=== PATIENT | female | born 1995 | race Caucasian/White ===

== ENCOUNTER 2020-12-29 12:13 | Observation (INO) | payer BC, SELFPAY ==
--- NOTE | 2020-12-29 14:43 | OBADM ---
This patient, Shweta Townsend, admitted to the OB room Labor/Delivery/Recovery 107 for observation. Patient/family oriented to hospital policies and general routines including ID bracelet, bed and alarms, visiting hours, pain management, procedures, bathroom and other care routines, personal items, smoking policy, room service/diet, and visiting hours. Patient/Family are encouraged to report perceived risks to care and to ask questions if they do not understand what they are told or what they should do.
--- NOTE | 2020-12-31 13:11 | PM.OBTRLD ---
OB - Triage/Final Diagnosis Visit Information Comments/Additional reasons for admission: I have assessed the risk for this patient, Shweta Townsend, and determined that she would benefit from observation care. Final Diagnosis (1) False labor: Code(s): O47.9 - False labor, unspecified Status: Acute
== END 2020-12-29 14:42 | disposition home or self-care (01) ==
PROVIDERS: Admitting Provider Obstetrics & Gynecology; Visit Provider Obstetrics & Gynecology
DX: O47.1 False labor at or after 37 completed weeks of gestation (principal); Z3A.39 39 weeks gestation of pregnancy
CPT/HCPCS: G0378; G0379

== ENCOUNTER 2020-12-30 00:15 | Inpatient (IN) | payer BC, SELFPAY ==
[2020-12-30] VITALS (167 sets, daily range): BP systolic 93–160; BP diastolic 52–104; PULSE 66–154; RESP 16–18; TEMP 36–37.9; O2SAT 93–100; BMI 27.4
--- NOTE | 2020-12-30 00:53 | LDADM ---
This patient, Shweta Townsend, was admitted to Labor/Delivery/Recovery 107 on 12/30/20 at 00:15. Plans for labor, pain management and were discussed with patient. Patient/family oriented to hospital policies and general routines including ID bracelet, bed and alarms, visiting hours, pain management, procedures, bathroom and other care routines, personal items, smoking policy, room service/diet and guest tray routines, security routines, and visiting hours. Patient/Family are encouraged to report perceived risks to care and to ask questions if they do not understand what they are told or what they should do. See OBIX for further documentation.
[2020-12-30] MEDS: LACTATED RINGERS 1,000 ML 125 ML IV CONT ×4 (01:00→08:57)
[2020-12-30] MEDS: AMPICILLIN 2 GM/NS 100 ML 2 GM/100 ML BAG IVPB (01:00)
[2020-12-30 01:02] LABS: Basophils Absolute Auto 0.1 K/mm3 (0.0-0.1); Basophils Percent Auto 0.3 % (0.2-1.2); Eosinophils Percent Auto 0.2 % (0-4.4); Hematocrit 36.2 % (37.0-47.0); Hemoglobin 12.1 g/dL (12.0-15.0); Immature Granulocyte Absolute 0.19 K/mm3 (0.00-0.031); Lymphocytes Absolute Auto 1.27 K/mm3 (0.9-3.2); Lymphocytes Percent Auto 6.7 % (18.3-44.2); Mean Corpuscular HGB Conc 33.4 g/dl (32-36); Mean Corpuscular Hemoglobin 30.1 pg (26-34); Mean Platelet Volume 9.3 fl (7.4-10.4); Monocytes Absolute Auto 0.8 K/mm3 (0.1-0.6); Monocytes Percent Auto 4.1 % (2.6-8.5); Neutrophils Absolute Auto 16.5 K/mm3 (1.3-6.7); Neutrophils Percent Auto 87.7 % (45.5-73.1); Platelet Count Result 305 k/mm3 (150-375); Red Blood Count 4.02 M/mm3 (4.2-5.4); Red Cell Distribution Width 13.6 % (11.5-14.5); White Blood Count 18.9 K/mm3 (4.5-10.0)
--- NOTE | 2020-12-30 02:19 | WPDANESEPPF ---
Anes - Initial Pre Proc Eval Procedure: labor epidural Date/Time: 12/30/20 02:19 Surgeon: Roe Buckner MD Pre Op Diagnosis: labor pain Pre Op Diagnosis: Contractions Patient Data Age: 25 Gender: F Height: 1.73 m Weight: 82 kg Last Vital Signs Pulse 82 12/30/20 02:16 BP 122/67 12/30/20 02:16 Pulse Ox 97 12/30/20 02:14 Allergies Allergy/AdvReac Type Severity Reaction Status Date / Time No Known Allergies Allergy Verified 12/12/20 14:34 Home Medications Medication Instructions Recorded Confirmed Type PNV cmb#95-ferrous fumarate-FA 1 tablet PO DAILY 12/12/20 12/12/20 History [] Laboratory Tests 12/30/20 12/30/20 00:49 00:49 WBC 18.9 K/mm3 H K/mm3 (4.5-10.0) RBC 4.02 M/mm3 L M/mm3 (4.2-5.4) Hgb 12.1 g/dL g/dL (12.0-15.0) Hct 36.2 % L % (37.0-47.0) MCV 90.0 fl fl (80-100) MCH 30.1 pg pg (26-34) MCHC 33.4 g/dl g/dl (32-36) RDW 13.6 % % (11.5-14.5) Plt Count 305 k/mm3 k/mm3 (150-375) MPV 9.3 fl fl (7.4-10.4) Immature Gran % (Auto) 1.0 % H % (0-0.5) Neut % (Auto) 87.7 % H % (45.5-73.1) Lymph % (Auto) 6.7 % L % (18.3-44.2) [place] % (Auto) 4.1 % % (2.6-8.5) Eos % (Auto) 0.2 % % (0-4.4) Baso % (Auto) 0.3 % % (0.2-1.2) Lymph # (Auto) 1.27 K/mm3 K/mm3 (0.9-3.2) [place] # (Auto) 0.8 K/mm3 H K/mm3 (0.1-0.6) Eos # (Auto) 0.0 K/mm3 K/mm3 (0-0.3) Baso # (Auto) 0.1 K/mm3 K/mm3 (0.0-0.1) Abs Immat Gran (auto) 0.19 K/mm3 H K/mm3 (0.00-0.031) Absolute Neuts (auto) 16.5 K/mm3 H K/mm3 (1.3-6.7) Absolute Nucleated RBC 0.0 K/mm3 K/mm3 (0.0-0.012) Nucleated RBC % 0.0 % % (0.0-0.2) RPR Pending Patient hx anesthesia problems: none Family hx anesthesia problems: none PMFSH Family History Family History Mother Breast cancer Father Diabetes mellitus Social History Social History Smoking status: Never smoker Second hand tobacco smoke exposure: No Substance use: never Gender identity (if verbalized by the patient): Female Sexual Orientation (if Verbalized by the Patient): Straight or Heterosexual Spiritual care concerns: No Anes - Eval Final PreProcedure Day of Procedure 12/30/20 02:19 Patient weight: overweight Heart: regular rate and rhythm Lungs: clear to auscultation and normal air movement Airway: Mallampati scale class II Neurological: alert and oriented ASA classification: II Anesthetic plan: proceed Anesthesia type and monitoring: regional epidural and standard monitoring Informed Consent: The patient's anesthetic plan and its attendant risks and benefits were discussed with the patient/family/POA. Questions were solicited and answers provided to the satisfaction of the patient/family/POA.
[2020-12-30] MEDS: AMPICILLIN 1 GM/NS 50 ML 1 GM/50 ML BAG IVPB ×2 (05:01→08:57)
--- NOTE | 2020-12-30 07:07 | WPDHPUPDATE1 ---
History and Physical Update Update Date/Time: 12/30/20 07:07 25 yo at 39w2d who presented in labor. Pt reports regular contractions that begin yesterday. She endorses good movement. She denies vaginal bleeding or leakage of fluid. Her has been uncomplicated thus far. History and Physical has been reviewed, including an updated exam of the patient. There are NO changes in the patient's condition. Risks, benefits, and alternatives have been discussed and questions answered. Patient agrees to proceed with procedure. A/P: 25 yo at 39w2d in labor admit to L&D routine admission orders Rh+ GBS +, will need PCN FHT cat 1 continuous EFM expectanat management
--- NOTE | 2020-12-30 08:40 | WPDOBADMIT ---
Obstetrics - Admit Note Admission Note: record reviewed. Additions to the history and/or subsequent changes in the physical findings follow. 25 y/o G1 at 39 2/7 weeks here with contractions. GBS pos. otherwise uncomplicated. AVSS NST reactive TOCO: contractions every 2-3 min ABD soft, nontender, gravid, vertex EXT nontender Cervix 9/100/+1. Vertex. A: IUP at term with labor. GBS pos. P: Receiving ampicillin. Plan oxytocin as needed. Anticipate .
--- NOTE | 2020-12-30 08:52 | PM.OBPNLAB ---
Pain Control Date/time seen: 12/30/20 08:52 Comments: Comfortable with epidural Pelvic Exam Dilation (cm): 9 Effacement (%): 100 station: +1 Contractions Contraction frequency: 3 Contraction pattern: Regular Contraction intensity: Moderate Status status: Category l Assessment and Plan Comments: A: IUP at term with labor. P: Augment with oxytocin as needed. Anticipate .
[2020-12-30] MEDS: OXYTOCIN 30 UNITS/NS 500 ML 30 UNITS/500 ML BAG 6 UNITS IV CONT (08:55)
[2020-12-30 10:35] LABS: Rapid Plasma Reagin Non-Reactive (NonReactive)
--- NOTE | 2020-12-30 10:47 | PM.OBPRVD ---
OB - Delivery Note Procedure Delivery date: 12/30/20 Procedure: Intrapartal events: None Induction method: none Delivery monitor: external FHT and external uterine Route of delivery: Episiotomy description: Midline Laceration Description: None Delivery repair: vicryl (3-0) Specimen: Yes (cord blood) Quantitative Blood Loss (ml): 425 Anesthesia type: Epidural Disposition: PACU Complications: None Narrative: 25 y/o G1 at 39 2/7 weeks gestation who presented to the hospital with contractions. She received an epidural for pain control. Amniotomy was performed with return of clear fluid. Her labor progressed and her cervix dilated completely. She pushed with good effort. A midline episiotomy was made and the infant's head delivered to the perineum, followed by the body. The nose and mouth were bulb suctioned. After a delay, the cord was clamped and cut. The infant was handed off the field. Cord blood was collected. The placenta delivered spontaneously and was grossly normal in appearance. The usual 3 vessel cord was noted. The MLE was free of extension. It was reapproximated using 3 0 Vicryl in the usual layered fashion. Excellent hemostasis resulted as did excellent reapproximation of the normal anatomy. Needle and instrument counts were correct. The patient was taken to recovery room in stable condition. The infant went to the nursery in stable condition. I was present and scrubbed for the entire delivery. [place] Baby Date of : 12/30/20 Time of : 10:26 Weeks of gestation at delivery: 39 Infant gender: Male Weight (pounds): 8 Weight (ounces): 3 presentation: vertex position: Left Occiput Anterior Placenta delivery description: Spontaneous and Normal Configuration cord vessel description: 3 Vessels and Delayed Cord Clamping score one minute: 9 score five minutes: 9
--- NOTE | 2020-12-30 10:50 | PM.OBDSVD ---
DS: Admitting Diagnosis Admitting Diagnosis Admitting Diagnosis: Labor at term GBS colonization DS: Discharge Diagnosis Discharge Diagnosis (1) (normal spontaneous vaginal delivery): Code(s): O80 - Encounter for full-term uncomplicated delivery Status: Acute (2) GBS (group B Streptococcus carrier), +RV culture, currently : Code(s): O99.820 - Streptococcus B carrier state complicating Status: Acute OB - DS: Summary OB Procedures : None OB Procedures Intrapartum: Spontaneous Vag Delivery OB Procedures: : None DS: Data Data Completed and Pending Labs on day of discharge: Labs from last 24 hours 12/30/20 12/30/20 12/30/20 00:49 00:49 00:49 WBC 18.9 H RBC 4.02 L Hgb 12.1 Hct 36.2 L MCV 90.0 MCH 30.1 MCHC 33.4 RDW 13.6 Plt Count 305 MPV 9.3 Immature Gran % (Auto) 1.0 H Neut % (Auto) 87.7 H Lymph % (Auto) 6.7 L [place] % (Auto) 4.1 Eos % (Auto) 0.2 Baso % (Auto) 0.3 Lymph # (Auto) 1.27 [place] # (Auto) 0.8 H Eos # (Auto) 0.0 Baso # (Auto) 0.1 Abs Immat Gran (auto) 0.19 H Absolute Neuts (auto) 16.5 H Absolute Nucleated RBC 0.0 Nucleated RBC % 0.0 RPR Non-reactive Blood Type O Positive Antibody Screen Negative Discharge Plan Discharge Attending physician on discharge: Roe Buckner Discharging Clinician: Roe Buckner Patient Disposition: Home, Self-Care Activity: pelvic rest Diet: regular Discharge Instructions: Call or return if temperature above 100.4? F, increased abdominal pain, increased vaginal bleeding or any new problems. Stand Alone Forms: General Discharge Information Follow-up/Referrals: Roe Buckner MD [Physician] - 6 Weeks Discharge Medications: New ibuprofen 600 mg tablet 600 mg PO Q6H PRN (Reason: cramps) Qty: 30 RF: 0 ferrous sulfate 325 mg (65 mg iron) tablet 325 mg PO DAILY Qty: 30 RF: 0 No Action PNV cmb#95-ferrous fumarate-FA [] 28 mg iron- 800 mcg Tablet 1 tablet PO DAILY RF: 0 Date of admission: 12/30/20 00:15 Primary Care Provider: PHYSICIAN,DEHYDROGENATION OPERATOR HEAD Admitting Provider: Roe Buckner Attending physician on admission: Roe Buckner Condition: Stable
[2020-12-30] MEDS: OXYTOCIN 30 UNITS/NS 500 ML 30 UNITS/500 ML BAG 125 UNITS IV CONT (11:08)
[2020-12-30] MEDS: IBUPROFEN 600 MG TABLET PO ×2 (11:45→18:05)
[2020-12-30] MEDS: BENZOCAINE 20% AER SPR (*SP) 56 GM CAN 1 SPRAY TOPICAL (12:28)
[2020-12-30] MEDS: WITCH HAZEL 40 PADS 1 PAD TOPICAL (12:28)
--- NOTE | 2020-12-30 13:42 | PC.NURSE ---
Addendum entered by Deborah Lieberman RN 12/30/20 13:42: Pt. admitted to room 280 at 1249. Original Note: Patient transferred to post room #280 per wheelchair. Support person present. Oriented to unit, room, information board, rooming in, admission packet and security measures. Patient verbalizes understanding.
--- NOTE | 2020-12-30 14:45 | PC.NURSE ---
Mother called out for assist with feeding. Mother reports infant has difficulties with first feeding. Infant has a tight frenulum. Mother's right areola is firm and edematous not allowing nipple to draw out. Reviewed feeding cues, frequencies, duration of feedings, feeding elimination flow sheet, and signs of adequate intake. Demonstrated stimulation techniques to wake for feeding. Assisted with infant to breast. Reviewed positioning/alignment in cross cradle, holding breast in ?U? hold and guided asymmetrical latch on. Infant unable to latch correctly. made several attempts to latch to right breast without a deep latch. Switched to left breast, nipple is not as large and areola is not as firm. made several attempts to latch and is unable to draw nipple in deeply. Offered and explained the nipple shield. Nipple shield provided to mother due to ineffective latch. Instructions given on application and cleaning of shield. Discussed nipple shield precautions and possible complications. Patient able to return demonstration on proper application of shield. Discussed the need to initiate pumping if continues to nurse with the shield. Patient verbalizes understanding. With shield in place, was able to latch with a shallow latch and nursed eagerly, with steady draws for bursts followed with long pausing and releasing latch. Mother was able to independently return to latch. Mother has pinching/discomfort with feeding. Mother removed shield and continued to attempt latch without shield. Discussed feeding options of pumping to provided any EBM available or supplementation with formula. Parents will discuss.
[2020-12-30] MEDS: DOCUSATE SODIUM 100 MG CAPSULE PO (16:05)
--- NOTE | 2020-12-30 16:11 | PC.NURSE ---
1600 Mother continued to independently attempt to left breast. latched with a good latch nursing with rhythmic draws, mother stimulates infant to keep him nursing effectively.
[2020-12-31] VITALS: BP 120/70; PULSE 130; RESP 18; TEMP 36.7; O2SAT 100
[2020-12-31] MEDS: IBUPROFEN 600 MG TABLET PO ×4 (00:17→20:30)
[2020-12-31 05:42] VITALS: BP 116/62; PULSE 84; RESP 16; TEMP 36.9; O2SAT 98
[2020-12-31] MEDS: ACETAMINOPHEN 325 MG TABLET 650 MG PO ×3 (06:00→20:15)
--- NOTE | 2020-12-31 07:45 | WPDANLDPN2 ---
Anes-Prog Note L&D Date/Time: 12/31/20 07:45 Comfortable throughout: labor and delivery Neuraxial method: epidural Epidural/Spinal procedure site: clean & non-tender Neuro status: Neuro function grossly intact. Cardiovascular status: normal Respiratory status: normal Airway patency: baseline Mental status: baseline Post-Op hydration status: normal Vital Signs: Last Vital Signs Temp 36.9 C 12/31/20 05:42 Pulse 84 12/31/20 05:42 Resp 16 12/31/20 05:42 BP 116/62 12/31/20 05:42 Pulse Ox 98 12/31/20 05:42 Pain score (VAS): 0 I/O: Intake & Output 12/30/20 12/30/20 12/31/20 15:59 23:59 07:59 Intake Total 2550 Output Total 511 Balance 2038 Post-procedural complaints: none Patient feedback: Patient satisfied with anesthetic care.
[2020-12-31 08:00] VITALS: BP 125/99; PULSE 92; RESP 18; TEMP 36.8
--- NOTE | 2020-12-31 08:15 | PC.NURSE ---
Consult with pt., mother reports infant latched for several good feedings during the night. Mother reports tenderness with feedings/pumping. Requested mother call out next feeding, mother states she would like to work independently and will call if assist is needed.
[2020-12-31] MEDS: DOCUSATE SODIUM 100 MG CAPSULE PO ×2 (08:55→17:07)
[2020-12-31] MEDS: BENZOCAINE 20% AER SPR (*SP) 56 GM CAN 1 SPRAY TOPICAL (08:56)
[2020-12-31] MEDS: MULTIVIT/MIN/PREN/FOL AC/IRON TABLET 1 TAB PO (08:56)
[2020-12-31] MEDS: WITCH HAZEL 40 PADS 1 PAD TOPICAL (08:56)
--- NOTE | 2020-12-31 10:16 | PM.OBPNVD ---
OB - PN: Subj Subjective Date/time seen: 12/31/20 10:16 Narrative: Pain OK. Desires circumcision for son. OB - PN: Obj Data Labs CBC & Chem 7: 12/30/20 00:49 Labs: Laboratory Results - last 24 hr 12/30/20 00:49 RPR Non-reactive OB - PN A/P Plan Comments: A: PPD#1, doing well. P: Routine care. Reviewed circ in detail. Exam Psych: Other: AVSS ABD soft, nontender, fundus firm EXT nontender
[2020-12-31 12:00] VITALS: BP 125/99; PULSE 92; RESP 18; TEMP 36.8; O2SAT 98
--- NOTE | 2020-12-31 12:55 | PC.NURSE ---
Assisted with to breast after frenulectomy. Discussed will continue to need assist with deep latch and may need to continue with supplementation until is able to maintain latch and nurse more effectively. Assisted with to breast. Reviewed positioning/alignment in cross cradle, holding breast in U hold and guided asymmetrical latch on. was able to latch correctly within a few attempts. Infant nursed eagerly, with steady draws and occasional swallowing followed with long pausing. Mother independently stimulated to keep awake and nursing. Aprox 5 minutes of feeding observed, this is the most consistent effective suckling noted and the longest maintaining latch. Reviewed signs of a correct latch, effective nursing and suck swallow ratio. Infant was able to maintain latch without discomfort to mother. Suggested mother continue to supplement the next few feedings and discontinue if is able to maintain consistent suck swallow for 10-15 minutes.
[2020-12-31 18:29] LABS: Hematocrit 29.1 % (37.0-47.0); Hemoglobin 9.6 g/dL (12.0-15.0)
[2020-12-31 19:26] VITALS: BP 108/48; PULSE 84; RESP 16; TEMP 36.1; O2SAT 96
[2020-12-31] MEDS: POLYSACCHARIDE IRON COMPLEX 150 MG CAPSULE PO (20:30)
[2021-01-01] MEDS: ACETAMINOPHEN 325 MG TABLET 650 MG PO (05:30)
[2021-01-01 06:50] VITALS: BP 119/74; PULSE 89; RESP 18; TEMP 36.4
[2021-01-01] MEDS: DOCUSATE SODIUM 100 MG CAPSULE PO (06:50)
[2021-01-01] MEDS: POLYSACCHARIDE IRON COMPLEX 150 MG CAPSULE PO (06:51)
[2021-01-01] MEDS: MULTIVIT/MIN/PREN/FOL AC/IRON TABLET 1 TAB PO (06:51)
--- NOTE | 2021-01-01 07:30 | PC.NURSE ---
Observed mother is able to independently latch infant with appropriate positioning/alignment. She reports slight nipple tenderness at times, is feeding as required and waking to feed if needed. has had at least 8 effective feedings in the past 24 hours followed with supplementation and mother pumping. is currently meeting outcomes for weight, output, jaundice and feeding frequencies. Infant is more awake and able to maintain latch after frenulectomy. Mother states infant requires less attempts to latch and is more consistent with suckling and maintaining latch. Mother questions if she needs to continue to supplement after feedings. Reviewed signs of adequate intake of output and clear yellow urine, feeding at least 10-15 minutes of effective nursing each feeding every 2-3 hours. Advised if is not able to feed as required or less than required output parents should begin to supplement after feedings and mother pump. Mother states she feels confident to continue effective and supplementing if needed at home. Reviewed transition to breast milk, signs of adequate intake, and engorgement/relief. Instructed to call ICP if intake/output less than required. Reviewed regular medications mother is taking. Information provided per [place]. Reviewed community resources on the [facility] website and in the Mom/Baby guide. Information on outpatient services provided. Mother has no further questions at this time.
--- NOTE | 2021-01-01 08:57 | PM.OBPNVD ---
OB - PN: Subj Subjective Date/time seen: 01/01/21 08:57 Narrative: Pain OK. Would like to go home. OB - PN: Obj Data Labs CBC & Chem 7: 12/31/20 18:15 Labs: Laboratory Results - last 24 hr 12/31/20 18:15 Hgb 9.6 L Hct 29.1 L OB - PN A/P Plan Comments: A: PPD#2, doing well. P: Home to f/u 6 weeks. Exam Psych: Other: AVSS ABD soft, nontender, fundus firm EXT nontender
--- NOTE | 2021-01-01 09:00 | PC.NURSE ---
Patient viewed the discharge video Mother & Baby Care, The First Two Weeks . Patient was given the opportunity and encouraged to ask questions. Patient verbalized understanding of information shared and has been given the mother/baby guide for home reference.
--- NOTE | 2021-01-01 11:30 | PC.NURSE ---
Self care and infant care discharge instructions given including follow up visit date and time. No questions or concerns voiced. Very pleasant and cooperative.
[2021-01-02 11:24] VITALS: BP 133/71; PULSE 89; RESP 20; TEMP 36.8; O2SAT 100
== END 2021-01-01 12:14 | disposition home or self-care (01) | DRG 807 ==
LOC: ANHLDR 10:51 → ANHOB2 12:53
PROVIDERS: Admitting Provider Student in an Organized Health Care Education/Training Program; Visit Provider Obstetrics & Gynecology
DX: O99.824 Streptococcus B carrier state complicating childbirth (principal); Z37.0 Single live birth; Z3A.39 39 weeks gestation of pregnancy
CPT/HCPCS: 36415; 85014; 85018; 85025; 86592; 86850; 86900; 86901; A9270; J0290; J2590; J2795; J7120

== ENCOUNTER 2022-12-06 18:44 | Inpatient (IN) | payer BC, SELFPAY ==
[2022-12-06 21:05] VITALS: BMI 32.2
--- NOTE | 2022-12-06 21:06 | LDADM ---
This patient, Shweta Townsend, was admitted to Labor/Delivery/Recovery 108 on 12/06/22 at 18:44. Plans for labor, pain management and were discussed with patient. Patient/family oriented to hospital policies and general routines including ID bracelet, bed and alarms, visiting hours, pain management, procedures, bathroom and other care routines, personal items, smoking policy, room service/diet and guest tray routines, infant security routines, and visiting hours. Patient/Family are encouraged to report perceived risks to care and to ask questions if they do not understand what they are told or what they should do. See OBIX for further documentation.
[2022-12-06 22:01] LABS: Basophils Absolute Auto 0.1 K/mm3 (0.0-0.1); Basophils Percent Auto 0.4 % (0.2-1.2); Eosinophils Absolute Auto 0.1 K/mm3 (0-0.3); Eosinophils Percent Auto 1.1 % (0-4.4); Hemoglobin 10.7 g/dL (12.0-15.0); Immature Granulocyte Percent A 0.8 % (0-0.5); Lymphocytes Absolute Auto 2.33 K/mm3 (0.9-3.2); Lymphocytes Percent Auto 18.9 % (18.3-44.2); Mean Corpuscular HGB Conc 32.4 g/dl (32-36); Mean Corpuscular Hemoglobin 28.2 pg (26-34); Mean Corpuscular Volume 86.8 fl (80-100); Mean Platelet Volume 9.3 fl (7.4-10.4); Monocytes Absolute Auto 0.8 K/mm3 (0.1-0.6); Monocytes Percent Auto 6.3 % (2.6-8.5); Neutrophils Absolute Auto 8.9 K/mm3 (1.3-6.7); Neutrophils Percent Auto 72.5 % (45.5-73.1); Platelet Count Result 325 k/mm3 (150-375); Red Cell Distribution Width 14.5 % (11.5-14.5); White Blood Count 12.3 K/mm3 (4.5-10.0)
[2022-12-07] VITALS (114 sets, daily range): BP systolic 79–216; BP diastolic 46–202; PULSE 61–154; RESP 16; TEMP 36.8–37.3; O2SAT 96–100
--- NOTE | 2022-12-07 00:06 | WPDANESEPP ---
Anes - Eval Pre Procedure Procedure: Labor epidural Date/Time: 12/07/22 00:06 Preop Diagnosis: Abdominal pain with contractions Pre Op Diagnosis: IOL Patient Data Age: 27 Gender: F Height: 1.75 m Weight: 99.09 kg Last Vital Signs O2 Del Method Room Air 12/06/22 21:05 Allergies Allergy/AdvReac Type Severity Reaction Status Date / Time No Known Allergies Allergy Verified 12/12/20 14:34 Home Medications Medication Instructions Recorded Confirmed Type vit no.95-ferrous 1 tablet PO DAILY 12/12/20 12/12/20 History fumarate 28 mg-folic acid 800 mcg tablet () ibuprofen 600 mg tablet 600 mg PO Q6H PRN cramps #30 tabs 12/31/20 Rx benzocaine 20 %-menthol 0.5 % 1 spray topical PRN PRN Perineal 01/01/21 Rx topical aerosol (Dermoplast (with Discomfort menthol)) ferrous sulfate 325 mg (65 mg 325 mg PO DAILY #30 tabs 01/01/21 Rx iron) tablet prenat.vits,анна,qtk-acof-fuuoz 1 tab PO DAILY 01/01/21 Rx (KPN tablet) witch cassie 50 % topical pads 1 pad topical PRN PRN Perineal 01/01/21 Rx (Preparation H (Witch Cassie)) Discomfort Laboratory Tests 12/06/22 12/06/22 12/06/22 21:56 21:56 21:56 WBC 12.3 K/mm3 H K/mm3 (4.5-10.0) RBC 3.80 M/mm3 L M/mm3 (4.2-5.4) Hgb 10.7 g/dL L g/dL (12.0-15.0) Hct 33.0 % L % (37.0-47.0) MCV 86.8 fl fl (80-100) MCH 28.2 pg pg (26-34) MCHC 32.4 g/dl g/dl (32-36) RDW 14.5 % % (11.5-14.5) Plt Count 325 k/mm3 k/mm3 (150-375) MPV 9.3 fl fl (7.4-10.4) Immature Gran % (Auto) 0.8 % H % (0-0.5) Neut % (Auto) 72.5 % % (45.5-73.1) Lymph % (Auto) 18.9 % % (18.3-44.2) [place] % (Auto) 6.3 % % (2.6-8.5) Eos % (Auto) 1.1 % % (0-4.4) Baso % (Auto) 0.4 % % (0.2-1.2) Lymph # (Auto) 2.33 K/mm3 K/mm3 (0.9-3.2) [place] # (Auto) 0.8 K/mm3 H K/mm3 (0.1-0.6) Eos # (Auto) 0.1 K/mm3 K/mm3 (0-0.3) Baso # (Auto) 0.1 K/mm3 K/mm3 (0.0-0.1) Abs Immat Gran (auto) 0.10 K/mm3 H K/mm3 (0.00-0.031) Absolute Neuts (auto) 8.9 K/mm3 H K/mm3 (1.3-6.7) Absolute Nucleated RBC 0.0 K/mm3 K/mm3 (0.0-0.012) Nucleated RBC % 0.0 % % (0.0-0.2) RPR Pending Blood Type O Positive Antibody Screen Negative : gestational age HCG: positive Patient hx anesthesia problems: none Family hx anesthesia problems: none Results Review: All pre-operative results and documents have been reviewed as part of the pre-operative evaluation. [facility] Past Medical History Medical History Obesity and not yet delivered Family History Family History Mother Breast cancer Father Diabetes mellitus Social History Social History Smoking status: Never smoker Second hand tobacco smoke exposure: No Substance use: never Lack of Transportation: No Lack of Food: Never True Current Housing: I Have Housing Concerned About Future Housing: No Difficulty Paying Gas/Electric Bills: No Difficulty Paying for Meds: No Currently Unemployed: No Education: Bachelor's Degree Difficulty w/ Childcare or Family Care: No Gender identity (if verbalized by the patient): Female Sexual Orientation (if Verbalized by the Patient): Straight or Heterosexual Spiritual care concerns: No Exam Day of Procedure 12/07/22 00:06 Patient weight: obese
[2022-12-07] MEDS: LACTATED RINGERS 1,000 ML 999 ML IV CONT (00:18)
[2022-12-07] MEDS: LACTATED RINGERS 1,000 ML 125 ML IV CONT (00:45)
--- NOTE | 2022-12-07 02:14 | WPDOBADMIT ---
Obstetrics - Admit Note Admission Note: record reviewed. Additions to the history and/or subsequent changes in the physical findings follow. 27 y/o at 39 1/7 weeks here with contractions. Labor diagnosed. Now comfortable with epidural. GBS neg. AVSS NST reactive TOCO: contractions every 3-5 min ABD soft, nontender, gravid, vertex EXT nontender Cervix 7/80/-2. AROM with clear fluid. Vertex. A: IUP at term with labor. P: Anticipate .
[2022-12-07] MEDS: OXYTOCIN 30 UNITS/NS 500 ML 30 UNITS/500 ML BAG IV CONT (03:13)
--- NOTE | 2022-12-07 05:13 | P.PCNOB_ITS ---
OB - Delivery Note Procedure Delivery date: 12/07/22 Procedure: Induction method: None Delivery augmentation: Rupture of Membranes and Pitocin Delivery monitor: External FHT and External Uterine Route of delivery: Laceration Description: Periurethral and Vaginal Delivery repair: vicryl (3-0) Specimen: Yes (cord blood) Quantitative Blood Loss (ml): 220 Anesthesia type: Epidural Disposition: PACU Complications: None Narrative: 27 y/o at 39 1/7 weeks gestation who presented to the hospital with contractions. Labor was diagnosed. She received an epidural for pain control. Amniotomy was performed with return of clear fluid. Her labor was subsequently augmented with IV oxytocin. Her labor progressed and her cervix dilated co mpletely. She pushed with good effort and delivered the infant's head to the perineum, followed by the body. The nose and mouth were bulb suctioned. After a delay, the cord was clamped and cut. The infant was handed off the field. Cord blood was collected. The placenta delivered spontaneously and was grossly normal in appearance. The usual 3 vessel cord was noted. A left sided periurethral laceration was sustained. This was reapproximated using 3 0 Vicryl in interrupted figure of eight fashion. A distal vaginal laceration was similarly reapproximated. Excellent hemostasis resulted as did excellent reapproximation of the normal anatomy. A red rubber catheter was passed through the urethra to make sure there was no kinking. Needle and instrument counts were correct. The patient was taken to recovery room in stable condition. The went to the nursery in stable condition. I was present and scrubbed for the entire delivery. [place] Baby Date of : 12/07/22 Time of : 04:54 Weeks of gestation at delivery: 39 Infant gender: Male Weight (pounds): 8 Weight (ounces): 11 presentation: vertex position: Right Occiput Anterior Placenta delivery description: Spontaneous and Normal Configuration Cord Vessel Description: 3 Vessels and Delayed Cord Clamping score one minute: 8 score five minutes: 9
--- NOTE | 2022-12-07 05:17 | PM.OBDSVD ---
DS: Admitting Diagnosis Discharge Date 12/09/22 Admitting Diagnosis IUP at 39 1/7 weeks Labor DS: Discharge Diagnosis Discharge Diagnosis (1) (normal spontaneous vaginal delivery): Code(s): O80 - Encounter for full-term uncomplicated delivery Status: Acute OB - DS: Summary OB Procedures : None OB Procedures Intrapartum: Spontaneous Vag Delivery OB Procedures: : None Time Spent with Patient Time attestation: Total time spent providing and/or coordinating discharge services: DS: Data Data Completed and Pending Labs on day of discharge: Labs from last 24 hours 12/06/22 12/06/22 12/06/22 21:56 21:56 21:56 WBC 12.3 H RBC 3.80 L Hgb 10.7 L Hct 33.0 L MCV 86.8 MCH 28.2 MCHC 32.4 RDW 14.5 Plt Count 325 MPV 9.3 Immature Gran % (Auto) 0.8 H Neut % (Auto) 72.5 Lymph % (Auto) 18.9 [place] % (Auto) 6.3 Eos % (Auto) 1.1 Baso % (Auto) 0.4 Lymph # (Auto) 2.33 [place] # (Auto) 0.8 H Eos # (Auto) 0.1 Baso # (Auto) 0.1 Abs Immat Gran (auto) 0.10 H Absolute Neuts (auto) 8.9 H Absolute Nucleated RBC 0.0 Nucleated RBC % 0.0 RPR Pending Blood Type O Positive Antibody Screen Negative Discharge Plan Discharge Attending physician on discharge: Roe Buckner Consulting providers: Asim Fuentes; Yesenia Aceves Discharging Clinician: Roe Buckner Patient Disposition: Home, Self-Care Activity: pelvic rest Diet: regular Discharge Instructions: Education: Mom and Baby Guide Given to: Mother Follow-Up: Call your delivering provider's office for an appointment to be seen in: 6 Weeks Mom and baby should come to the [facility] for the follow-up appointment. Appointment Date/Time: December 10, 2022 at 8:00 am What to expect at your follow-up visit: Blood Pressure Check Physical Assessment Call [phone] if you are unable to keep your appointment time. BREAST CARE: * Wear a snug supportive bra. * For engorgement discomfort: Breast Feeding: * Apply warm moist washcloths * Express milk as needed to relieve engorgement * Wear loose clothing * For sore nipples: * Identify correct latch-on * Apply warm moist washcloths before and after nursing * Air dry nipples after nursing * May apply Lansinoh cream to nipples PERINEAL CARE: * Until bleeding stops, use your daniela bottle after urinating * Change your pad frequently throughout the day * You may take sitz baths several times a day (fill your bathtub with warm water and soak for 20 minutes.) Do NOT bathe in the water * No tub baths until seen by your physician - You may shower ACTIVITY: * Rest as much as possible. * Do not exercise or lift anything heavier than your baby (such as laundry or other children.) * Avoid stairs or driving as much as possible. * Do not put anything into the vagina. No douching, tampons, or sexual activity until seen by physician. NOTIFY PHYSICIAN IF YOU HAVE ANY QUESTIONS OR IF ANY OF THE FOLLOWING SYMPTOMS OCCUR: * If your episiotomy or incision becomes red, swollen, or more painful than what you have experienced in the hospital. * If your vaginal bleeding becomes foul smelling. * If your vaginal bleeding becomes more heavy than a period or if your bleeding changes from pink to bright red. However, you may pass an occasional walnut-sized clot once or twice for the first week . * If you experience a sharp, shooting pain in your calves. * If you discover a hard, reddened area on your breast or if you experience flu-like symptoms. DIET: * Eat regular, well-balanced meals. * Drink plenty of fluids daily. If , drink to thirst. Call or return if temperature above 100.4? F, increased abdominal pain, increased vaginal bleeding or any new problems. Stand Alone Forms: General Discharge Information Follow-up/Ref
[2022-12-07] MEDS: OXYTOCIN 30 UNITS/NS 500 ML 30 UNITS/500 ML BAG 125 UNITS IV CONT (05:41)
--- NOTE | 2022-12-07 08:30 | OBPPTRN ---
Patient transferred to post room #292 via wheelchair. Support person present. Oriented to unit, room, information board, rooming in, admission packet and security measures. Patient verbalizes understanding.
[2022-12-07 08:32] LABS: Rapid Plasma Reagin Non-Reactive (NonReactive)
[2022-12-07] MEDS: DOCUSATE SODIUM 100 MG CAPSULE PO ×2 (09:31→17:32)
[2022-12-07] MEDS: MULTIVIT/MIN/PREN/FOL AC/IRON TABLET 1 TAB PO (09:31)
--- NOTE | 2022-12-07 09:41 | PC.NURSE ---
0915- Introductions were made, then consulted with patient to assess needs related to . Mother led the conversation with her?plans to feed?her infant, history and the?experience so far well with no pain. Resources provided for inpatient and outpatient services with the feeding sheet, mom/baby guide and name written on the white board. Mother voiced understanding of information and will call if there is a request for assistance. Reported to the primary RN.
[2022-12-07] MEDS: IBUPROFEN 600 MG TABLET PO (13:18)
[2022-12-07] MEDS: ACETAMINOPHEN 325 MG TABLET 650 MG PO (17:32)
[2022-12-08 05:14] LABS: Hematocrit 27.5 % (37.0-47.0); Mean Corpuscular Volume 88.4 fl (80-100); Red Blood Count 3.11 M/mm3 (4.2-5.4); White Blood Count 11.7 K/mm3 (4.5-10.0)
[2022-12-08 05:15] LABS: Basophils Percent Auto 0.4 % (0.2-1.2); Eosinophils Percent Auto 1.7 % (0-4.4); Lymphocytes Percent Auto 23.3 % (18.3-44.2); Mean Corpuscular HGB Conc 32.7 g/dl (32-36); Mean Corpuscular Hemoglobin 28.9 pg (26-34); Mean Platelet Volume 9.3 fl (7.4-10.4); Monocytes Percent Auto 6.5 % (2.6-8.5); Neutrophils Percent Auto 67.3 % (45.5-73.1); Platelet Count Result 257 k/mm3 (150-375); Red Cell Distribution Width 14.6 % (11.5-14.5)
[2022-12-08 05:16] LABS: Basophils Absolute Auto 0.1 K/mm3 (0.0-0.1); Eosinophils Absolute Auto 0.2 K/mm3 (0-0.3); Lymphocytes Absolute Auto 2.72 K/mm3 (0.9-3.2); Monocytes Absolute Auto 0.8 K/mm3 (0.1-0.6); Neutrophils Absolute Auto 7.9 K/mm3 (1.3-6.7)
[2022-12-08] MEDS: ACETAMINOPHEN 325 MG TABLET 650 MG PO ×2 (07:44→15:23)
[2022-12-08] MEDS: DOCUSATE SODIUM 100 MG CAPSULE PO ×2 (07:45→15:23)
[2022-12-08] MEDS: POLYSACCHARIDE IRON COMPLEX 150 MG CAPSULE PO ×2 (07:45→15:22)
[2022-12-08] MEDS: MULTIVIT/MIN/PREN/FOL AC/IRON TABLET 1 TAB PO (07:45)
[2022-12-08 08:35] VITALS: BP 121/73; PULSE 80; RESP 18; TEMP 37.3; O2SAT 99
--- NOTE | 2022-12-08 09:08 | PM.OBPNVD ---
OB - PN: Subj Subjective Date/time seen: 12/08/22 09:08 Narrative: Pain OK. Would like circumcision for son. OB - PN: Obj Data Labs 12/08/22 03:50 Labs: Laboratory Results - last 24 hr 12/08/22 03:50 WBC 11.7 H RBC 3.11 L Hgb 9.0 L Hct 27.5 L MCV 88.4 MCH 28.9 MCHC 32.7 RDW 14.6 H Plt Count 257 MPV 9.3 Immature Gran % (Auto) Not Reportable Neut % (Auto) 67.3 Lymph % (Auto) 23.3 [place] % (Auto) 6.5 Eos % (Auto) 1.7 Baso % (Auto) 0.4 Lymph # (Auto) 2.72 [place] # (Auto) 0.8 H Eos # (Auto) 0.2 Baso # (Auto) 0.1 Abs Immat Gran (auto) 0.80 H Absolute Neuts (auto) 7.9 H Absolute Nucleated RBC 0.0 Nucleated RBC % 0.0 OB - PN A/P Plan day: 1 Comments: A: PPD#1, doing well. P: Reviewed circ. Routine care. Exam Psych: Other: AVSS ABD soft, nontender, fundus firm EXT nontender
--- NOTE | 2022-12-08 10:44 | PC.NURSE ---
[phone] Purposefully rounded to assess needs. Mother is demonstrating an independent latch to the right breast. is dangling and RN gently suggested bringing infants body in close to mothers body and father encouraged supporting mother's arm with a pillow. She denies any nipple discomfort and is responsively . is currently meeting outcomes for weight, output, jaundice and feeding frequencies of 8-12 times in 24 hours. Mother declines any additional assistance/education at this time. Mother is encouraged to call for assistance if her infant doesn?t latch or there is discomfort with latching. Parents voiced understanding of information shared and the mom reminded of the mom/baby guide for an additional resource. Reported to the primary RN.
--- NOTE | 2022-12-08 10:49 | WPDANLDPN2 ---
Anes-Prog Note L&D Date/Time: 12/08/22 10:49 Comfortable throughout: labor and delivery Neuraxial method: epidural Epidural/Spinal procedure site: clean & non-tender Neuro status: Neuro function grossly intact. Cardiovascular status: normal Respiratory status: normal Airway patency: baseline Mental status: baseline Post-Op hydration status: normal Vital Signs: Last Vital Signs Temp 37.3 C 12/08/22 08:35 Pulse 80 12/08/22 08:35 Resp 18 12/08/22 08:35 BP 121/73 12/08/22 08:35 Pulse Ox 99 12/08/22 08:35 O2 Del Method Room Air 12/07/22 12:30 Pain score (VAS): 1 I/O: Intake & Output 12/07/22 12/08/22 12/08/22 23:59 07:59 15:59 Intake Total 240 Balance 240 Post-procedural complaints: none Patient feedback: Patient satisfied with anesthetic care.
[2022-12-08] MEDS: IBUPROFEN 600 MG TABLET PO (11:08)
[2022-12-08 19:39] VITALS: BP 142/85; PULSE 80; RESP 16; TEMP 36.6; O2SAT 99
--- NOTE | 2022-12-09 07:21 | PM.OBPNVD ---
OB - PN: Subj Subjective Date/time seen: 12/09/22 07:21 Patient comments: no complaints and pain well controlled baby status: doing well OB - PN: Obj Data Labs 12/08/22 03:50 OB - PN A/P Plan day: 2 Plan: routine care, discharge home and follow up 6 weeks Time Spent With Patient Time: Total time spent is greater than 50% in coordination of care (as documented) at patient's floor/unit and/or counseling patient: Time with patient: less than 15 minutes Exam Const: General: cooperative, healthy appearing, comfortable and well groomed Orientation/consciousness: oriented to person, oriented to place and oriented to time HENMT: Head: normal to inspection Resp: Effort & Inspection: normal respiratory effort Cardio: Rate: regular rate Rhythm: regular rhythm Heart sounds: S1 normal heart sound present and S2 normal heart sound present GI: Inspection: normal to inspection
[2022-12-09 07:44] VITALS: BP 126/70; PULSE 82; RESP 16; TEMP 36.6; O2SAT 98
[2022-12-09] MEDS: POLYSACCHARIDE IRON COMPLEX 150 MG CAPSULE PO (08:43)
[2022-12-09] MEDS: DOCUSATE SODIUM 100 MG CAPSULE PO (08:43)
[2022-12-09] MEDS: MULTIVIT/MIN/PREN/FOL AC/IRON TABLET 1 TAB PO (08:43)
--- NOTE | 2022-12-09 14:49 | PC.NURSE ---
[phone] Mother led the conversation with her experience and plan to feed her so far and her ability to independently latch optimally without discomfort and will supplement when she chooses. Discussed the risks and benefits of supplementing with formula. Mother is feeding appropriately for growth of and understands stimulating to eat if needed. has had appropriate feedings in the last 24 hours meets the outcomes for weight, output and jaundice at this time. Mother states she is confident to continue feed her infant at home, when to call for assistance and denies any additional assistance or education at this time. Reinforced understanding of milk production, transition of milk, signs of adequate intake, transition of stool, prevention/relief of engorgement, responsive watching for feeding cues, the different methods of stimulating infant to breastfeed 2-3 hours after the start of the last feeding, community resources, medication information reviewed per [facility] and when to call a provider using the resource of the mom and baby guide. Mother voiced understanding of the education shared.
[2022-12-10 08:30] VITALS: BP 125/71; PULSE 93; RESP 18; TEMP 36.4; O2SAT 97
== END 2022-12-09 14:02 | disposition home or self-care (01) | DRG 807 ==
LOC: ANHLDR 12-07 05:19 → ANHOB2 12-09 13:25 → ANHLDR 12-10 08:06 → ANHOB2 12-10 08:06
PROVIDERS: Admitting Provider Obstetrics & Gynecology; Visit Provider Obstetrics & Gynecology
DX: O71.82 Other specified trauma to perineum and vulva (principal); Z37.0 Single live birth; Z3A.39 39 weeks gestation of pregnancy
CPT/HCPCS: 36415; 85025; 86592; 86850; 86900; 86901; A9270; J2590; J2795; J7120

== ENCOUNTER 2025-01-27 08:28 | Inpatient (IN) | payer BC, SELFPAY ==
[2025-01-27] VITALS (19 sets, daily range): BP systolic 107–231; BP diastolic 57–171; PULSE 90–163; RESP 16; TEMP 36.6–37.8; O2SAT 96–100; BMI 31.1
--- OUTSIDE RECORDS SUMMARY | 2025-01-27 08:46 | XMS_ITS | Clinical Summary ---
Author Organization [facility] Address [address] [place] [address] Care Team Providers Care Sales Trader Name Role Phone Unavailable Primary Care Provider Unavailabl e Source Comments [facility],non-owned Affiliates and Associated Physician Practices is amultiple site organization consisting of ambulatory clinics and hospital sitesin [place], [place], [place] and [place]. This disclosure is being madepursuant to the Care Everywhere program and may not contain all information available regarding this patient. Last updated 18.[facility] Social History Tobacco Use Types Packs/Day Years Used Date Smoking Tobacco: Never Assessed Comments Unknown Sex and Gender Information Value Date Recorded Sex Assigned at Not on file Legal Sex Female 8:56 AM CDT Gender Identity Not on file Sexual Orientation Not on file Plan of Treatment Health Maintenance Due Date Last Done Comments HIV SCREENING 2010 HEPATITIS C SCREENING 08/20/2013 DTAP/TDAP/TD VACCINES (1 - Tdap) 2014 HEPATITIS B VACCINE (1 of 3 - 19+ 3-dose series) 2014 COVID-19 VACCINE ( - 2023-2 5 season) 2024 DEPRESSION SCREENING 08/15/2024 INFLUENZA VACCINE (Season Ended) 2025 ZOSTER VACCINE (1 of 2) 2045 HIB VACCINE Aged Out No longer eligi ble based on patient's age to complete this topic HPV VACCINE Aged Out No longer eligi ble based on patient's age to complete this topic MENINGOCOCCAL (Group B) VACC INE SHARED DECISION-MAKING Aged Out No longer eligibl e based on patient's age to complete this topic MENINGOCOCCAL GROUPS A/C/Y/W VACCINE Aged Out No longer eligible b ased on patient's age to complete this topic PNEUMOCOCCAL VACCINE Aged Out No long er eligible based on patient's age to complete this topic
[2025-01-27 09:23] LABS: Basophils Absolute Auto 0.1 K/mm3 (0.0-0.1); Basophils Percent Auto 0.5 % (0.2-1.2); Eosinophils Absolute Auto 0.1 K/mm3 (0-0.3); Eosinophils Percent Auto 1.2 % (0-4.4); Hematocrit 30.9 % (37.0-47.0); Hemoglobin 9.7 g/dL (12.0-15.0); Immature Granulocyte Absolute 0.13 K/mm3 (0.00-0.031); Immature Granulocyte Percent A 1.2 % (0-0.5); Lymphocytes Absolute Auto 1.76 K/mm3 (0.9-3.2); Lymphocytes Percent Auto 15.9 % (18.3-44.2); Mean Corpuscular HGB Conc 31.4 g/dl (32-36); Mean Corpuscular Hemoglobin 25.7 pg (26-34); Mean Platelet Volume 9.5 fl (7.4-10.4); Monocytes Absolute Auto 0.7 K/mm3 (0.1-0.6); Monocytes Percent Auto 6.2 % (2.6-8.5); Neutrophils Absolute Auto 8.3 K/mm3 (1.3-6.7); Platelet Count Result 319 k/mm3 (150-375); Red Blood Count 3.77 M/mm3 (4.2-5.4); White Blood Count 11.1 K/mm3 (4.5-10.0)
[2025-01-27] MEDS: LACTATED RINGERS 1,000 ML 125 ML IV CONT (09:35)
[2025-01-27] MEDS: AMPICILLIN 2 GM/NS 100 ML 2 GM/100 ML BAG IVPB (09:35)
[2025-01-27 10:13] LABS: HIV 1/2 Ab P24 Ag Result Negative (Negative)
[2025-01-27 10:41] LABS: Syphilis IgG/IgM Antibody Non-Reactive (Nonreactive)
[2025-01-27] MEDS: AMPICILLIN 1 GM/NS 50 ML 1 GM/50 ML BAG IVPB (13:24)
--- NOTE | 2025-01-27 14:20 | PM.IMHP ---
H&P: HPI History of Present Illness Date/Time: 01/27/25 14:20 Chief Complaint: Contractions Narrative: 29 y/o at 39 weeks here with contractions. GBS pos. Review of Systems Review of Systems: All systems reviewed & are unremarkable except as noted in HPI and below PMFSH Past Medical History Medical History Obesity and not yet delivered Family History Family History Mother Breast cancer Father Diabetes mellitus Social History Social History Smoking status: Never smoker Second hand tobacco smoke exposure: No Substance use: never Do You Feel Safe in your Home?: Yes Lack of Transportation: No Lack of Food: Never True Current Housing: I Have Housing Concerned About Future Housing: No Difficulty Paying Gas/Electric Bills: No Difficulty Paying for Meds: No Currently Unemployed: No Education: Master's Degree or Higher Difficulty w/ Childcare or Family Care: No Gender identity (if verbalized by the patient): Female Sexual Orientation (if Verbalized by the Patient): Straight or Heterosexual Spiritual care concerns: No Meds Home Medications and Allergies Home Medications ?Medication ?Instructions ?Recorded ?Confirmed ?Type vit no.95-ferrous 1 tablet PO DAILY 12/12/20 01/27/25 History fumarate 28 mg-folic acid 800 mcg tablet () Allergies Allergy/AdvReac Type Severity Reaction Status Date / Time No Known Allergies Allergy Verified 12/12/20 14:34 Vital Signs Vital Signs - 24 hr 01/27/25 09:12 01/27/25 10:00 01/27/25 10:15 Temperature 36.6 C Pulse Rate 90 Blood Pressure 114/59 L Oxygen Delivery Room Air 01/27/25 10:46 01/27/25 11:01 01/27/25 11:16 Temperature Pulse Rate 93 112 H 115 H Blood Pressure 119/69 125/57 L 107/80 Oxygen Delivery 01/27/25 14:01 Temperature Pulse Rate 95 Blood Pressure 114/59 L Oxygen Delivery Exam Const: Orientation/consciousness: patient oriented x3 Other: Well-developed, well-nourished female in no acute distress. Neck: Thyroid: thyroid normal Lymphatic: no lymphadenopathy noted (in neck, axilla or inguinal nodes) Resp: Effort & Inspection: normal respiratory effort Auscultation: clear to auscultation bilaterally Cardio: Rate: regular rate Rhythm: regular rhythm Heart sounds: S1 normal heart sound present and S2 normal heart sound present GI: Other: ABD: Soft, nontender, nondistended, gravid, vertex. No guarding or rebound tenderness. No hepatosplenomegaly. NST reactive. TOCO: contractions every 2-4 min. : General: Yes no CVA tenderness Other: Cervix 6/90/-2. AROM with thinly meconium-stained fluid. Back/Spine/Pelvis: Back: no CVA tenderness Skin: General skin exam: normal color and no rashes or lesions noted Neuro: General: patient oriented x3 Extrem: Other: Extremities: nontender with no edema Psych: Mental Status: mental status grossly normal Affect: normal affect H&P: Results Labs Labs: Short CBC 01/27/25 Range/Units 08:54 WBC 11.1 H (4.5-10.0) K/mm3 Hgb 9.7 L (12.0-15.0) g/dL Hct 30.9 L (37.0-47.0) % Plt Count 319 (150-375) k/mm3 Assessment and Plan Assessment and plan (1) Active labor at term: Status: Acute Assessment and Plan: A: IUP at 39 weeks with labor. GBS pos. P: Ampicillin. Anticipate . (2) GBS (group B Streptococcus carrier), +RV culture, currently : Code(s): O99.820 - Streptococcus B carrier state complicating Status: Acute
[2025-01-27] MEDS: OXYTOCIN 30 UNITS/NS 500 ML 30 UNITS/500 ML BAG IV CONT (16:00)
[2025-01-27] MEDS: OXYTOCIN 10 UNITS/ML VIAL 20 UNITS (17:21)
[2025-01-27] MEDS: miSOPROStol 200 MCG TABLET 1000 MCG (17:24)
--- NOTE | 2025-01-27 17:30 | P.PCNOB_ITS ---
OB - Vaginal Delivery Note Procedure Delivery date: 01/27/25 Events: Positive Group B Strep (GBS) and Other (Labor at 39 weeks) Induction method: None Delivery augmentation: Pitocin Delivery monitor: External FHT and External Uterine Route of delivery: Laceration Description: None Specimen: Yes (Cord blood) Quantitative Blood Loss (ml): 450 Anesthesia type: None Disposition: PACU Complications: None Narrative: 29 y/o at 39 weeks gestation who presented to the hospital with contractions. Labor was diagnosed. She was given ampicillin for GBS colonization. Amniotomy was performed with return of thinly meconium-stained fluid. Her labor was augmented with oxytocin. Labor progressed and her cervix dilated completely. She pushed with good effort and delivered the infant's head to the perineum, followed by the body. The nose and mouth were bulb suctioned. After a delay, the cord was clamped and cut. The infant was handed off the field. Cord blood was collected. The placenta delivered spontaneously and was grossly normal in appearance. The usual 3 vessel cord was noted. There were no lacerations. Needle and instrument counts were correct. Her IV infiltrated, and some uterine atony was treated with IM oxytocin 20 units and 1000mcg misoprostol SD. The patient was taken to recovery room in stable condition. The infant went to the nursery in stable condition. I was present and scrubbed for the entire delivery. [place] Baby Date of : 01/27/25 Time of : 17:13 Gestational Age by Date: 39 Infant gender: Female presentation: vertex position: Left Occiput Anterior Placenta delivery description: Spontaneous Cord Vessel Description: 3 Vessels and Delayed Cord Clamping score one minute: 8 score five minutes: 9
--- NOTE | 2025-01-27 17:35 | P.DS_ITS ---
DS: Admitting Diagnosis Discharge Date 01/29/25 Admitting Diagnosis IUP at 39 weeks Labor GBS colonization DS: Discharge Diagnosis Discharge Diagnosis (1) (normal spontaneous vaginal delivery): Code(s): O80 - Encounter for full-term uncomplicated delivery Status: Acute (2) GBS (group B Streptococcus carrier), +RV culture, currently : Code(s): O99.820 - Streptococcus B carrier state complicating Status: Acute OB - DS: Summary OB Procedures : None OB Procedures Intrapartum: Spontaneous Vag Delivery and GBS prophylaxis OB Procedures: : None Peripartum Data Laceration Description: None Time Spent with Patient Time attestation: Total time spent providing and/or coordinating discharge services: DS: Data Data Completed and Pending Labs on day of discharge: Labs from last 24 hours 01/27/25 01/27/25 09:45 08:54 WBC 11.1 H RBC 3.77 L Hgb 9.7 L Hct 30.9 L MCV 82.0 MCH 25.7 L MCHC 31.4 L RDW 15.0 H Plt Count 319 MPV 9.5 Immature Gran % (Auto) 1.2 H Neut % (Auto) 75.0 H Lymph % (Auto) 15.9 L [place] % (Auto) 6.2 Eos % (Auto) 1.2 Baso % (Auto) 0.5 Lymph # (Auto) 1.76 [place] # (Auto) 0.7 H Eos # (Auto) 0.1 Baso # (Auto) 0.1 Abs Immat Gran (auto) 0.13 H Absolute Neuts (auto) 8.3 H Absolute Nucleated RBC 0.000 Nucleated RBC % 0.0 Syphilis IgG/IgM Ab Non-reactive HIV 1&2 Ab/P24 Ag 4thGn Negative Blood Type O Positive Antibody Screen Negative Discharge Plan Discharge Attending physician on discharge: Roe Buckner Discharging Clinician: Roe Buckner Patient Disposition: Home Activity: pelvic rest Diet: regular Discharge Instructions: Call or return if temperature above 100.4? F, increased abdominal pain, increased vaginal bleeding or any new problems. Patient Language: Gabonese Stand Alone Forms: General Discharge Information Follow-up/Referrals: Roe Buckner MD [Physician] - 6 Weeks Discharge Medications: New ibuprofen 600 mg tablet 600 mg PO Q6H PRN (Reason: cramps) Qty: 30 0RF ferrous sulfate 325 mg (65 mg iron) tablet 325 mg PO DAILY Qty: 30 0RF Continued PNV cmb#95-ferrous fumarate-FA [] 28 mg iron- 800 mcg Tablet 1 tablet PO DAILY Date of admission: 01/27/25 08:28 Primary Care Provider: UNKNOWN,DOCTOR Admitting Provider: Roe Buckner Attending physician on admission: Roe Buckner Condition: Stable
[2025-01-27] MEDS: IBUPROFEN 600 MG TABLET (17:40)
--- NOTE | 2025-01-27 20:27 | OBPPTRN ---
Patient transferred to post room # 290 via wheelchair. Support person present. Oriented to unit, room, information board, rooming in, admission packet and security measures. Patient verbalizes understanding.
[2025-01-27] MEDS: BENZOCAINE 20% AER SPR (*SP) 56 GM CAN 1 SPRAY TOPICAL (20:32)
[2025-01-27] MEDS: WITCH HAZEL 40 PADS 1 PAD TOPICAL (20:32)
[2025-01-27] MEDS: ACETAMINOPHEN 325 MG TABLET 650 MG PO (20:50)
[2025-01-28 00:06] VITALS: BP 127/66; PULSE 100; RESP 16; TEMP 37.1; O2SAT 96
[2025-01-28] MEDS: ACETAMINOPHEN 325 MG TABLET 650 MG PO ×3 (02:50→22:10)
[2025-01-28 04:06] VITALS: BP 121/66; PULSE 100; RESP 16; TEMP 36.4; O2SAT 96
[2025-01-28 05:17] LABS: Hematocrit 26.3 % (37.0-47.0); Hemoglobin 8.1 g/dL (12.0-15.0)
[2025-01-28 07:30] VITALS: BP 113/72; PULSE 88; RESP 16; TEMP 36.4; O2SAT 98
[2025-01-28] MEDS: MULTIVIT/MIN/PREN/FOL AC/IRON TABLET 1 TAB PO (08:29)
[2025-01-28] MEDS: DOCUSATE SODIUM 100 MG CAPSULE PO ×2 (08:29→17:02)
[2025-01-28] MEDS: POLYSACCHARIDE IRON COMPLEX 150 MG CAPSULE PO ×2 (08:29→17:01)
--- NOTE | 2025-01-28 08:55 | PC.NURSE ---
Mother verbalizes she is able to independently latch with appropriate positioning and alignment. Discussed frequencies of feeding 8-12 times in 24 hours (approximately 2-3 hours) and the duration of feedings. She denies any nipple discomfort and is responsively . latched optimally to the [left] breast in [cradle] position. The was [able] to maintain latch without discomfort to mother. Nipple care reviewed with optimal latch, good positioning and using clean hands when touching her breast. is currently meeting outcomes for weight, output, jaundice, and blood sugar. Mother declines any additional assistance or education at this time. Mother is encouraged to call for assistance if her doesn?t latch, pain with latching, questions or concerns. Mother voiced understanding of information shared along with the mom/baby guide for an additional resource. Reported to the Primary RN.
--- NOTE | 2025-01-28 12:36 | P.PNOB_ITS ---
OB - PN: Subj Subjective Date/time seen: 01/28/25 12:36 Narrative: Pain OK. OB - PN: Obj Data Labs 01/28/25 04:11 Labs: Laboratory Results - last 24 hr 01/28/25 04:11 Hgb 8.1 L Hct 26.3 L OB - PN A/P Plan day: 1 Comments: A: PPD#1, doing well. P: Routine care. Exam 2 Psych: Other: AVSS ABD soft, nontender, fundus firm EXT nontender
[2025-01-28 12:39] VITALS: BP 113/73; PULSE 80; RESP 16; TEMP 36.8; O2SAT 97
[2025-01-28 19:30] VITALS: BP 103/57; PULSE 78; RESP 16; TEMP 36.4; O2SAT 97
--- NOTE | 2025-01-29 08:40 | P.PNOB_ITS ---
OB - PN: Subj Subjective Date/time seen: 01/29/25 08:40 Narrative: Pain OK. Would like to go home. OB - PN: Obj Data Labs 01/28/25 04:11 OB - PN A/P Plan Comments: A: PPD#2, doing well. P: Home to f/u 6 weeks. Exam 2 Psych: Other: AVSS ABD soft, nontender, fundus firm EXT nontender
[2025-01-29] MEDS: POLYSACCHARIDE IRON COMPLEX 150 MG CAPSULE PO (08:47)
[2025-01-29] MEDS: ACETAMINOPHEN 325 MG TABLET 650 MG PO (08:47)
[2025-01-29] MEDS: MULTIVIT/MIN/PREN/FOL AC/IRON TABLET 1 TAB PO (08:47)
[2025-01-29] MEDS: DOCUSATE SODIUM 100 MG CAPSULE PO (08:47)
--- NOTE | 2025-01-29 09:20 | PC.NURSE ---
Reviewed standard discharge information with patient including monitoring for required output, transition of stools, feeding 8-12 times every 24 hours, milk production, and follow up at [facility] and with resin mixer in the first week of life. Parents are encouraged to take the feeding log and continue to track feedings and output for the first week . Offered outpatient resources with [facility] referral and Services at [facility]. Patient has the Mom/Baby Guide for further education and reference for common concerns, phone numbers, and guidance on when to call the doctor. A feeding plan was added to the infant?s discharge plan. Patient states that she has no further questions or concerns regarding .???
[2025-01-30 10:31] VITALS: BP 114/63; PULSE 92; RESP 18; TEMP 36.8; O2SAT 100
== END 2025-01-29 12:55 | disposition home or self-care (01) | DRG 807 ==
LOC: ANHLDR 17:38 → ANHOB2 20:30
PROVIDERS: Admitting Provider Obstetrics & Gynecology; Visit Provider Obstetrics & Gynecology
DX: O99.824 Streptococcus B carrier state complicating childbirth (principal); Z37.0 Single live birth; O77.0 Labor and delivery complicated by meconium in amniotic fluid; O69.3XX0 Labor and delivery complicated by short cord, not applicable or unspecified; Z3A.39 39 weeks gestation of pregnancy
CPT/HCPCS: 36415; 85014; 85018; 85025; 86593; 86703; 86850; 86900; 86901; A9270; G0432; J0290; J2590; J7120